=== PATIENT | female | born 1955 | race Caucasian/White ===

== ENCOUNTER → 2022-04-20 11:57 | Outpatient (CLI) | payer OTHER, SELFPAY ==
--- NOTE | ~2022-04-20 | MM_ITS ---
EXAMINATION: MM screening karine BI w isai HISTORY: Screening TECHNIQUE: Craniocaudal and mediolateral oblique 3-D tomosynthesis images were obtained and synthetic 2-D images were generated. CAD analysis was submitted and interpreted. COMPARISON: Comparison to multiple prior studies sequentially, with oldest reviewed study dated 11/22. BREAST PARENCHYMAL COMPOSITION: There are scattered areas of fibroglandular density. FINDINGS: There is no evidence of suspicious mass, calcification, or architectural distortion to sugg est malignancy in either breast. There has been no suspicious interval change. IMPRESSION: 1. No mammographic evidence of malignancy. 2. Recommend routine screening mammography in one year. BI-RADS Category 1: Negative Reviewed, dictated and finalized at location A.
--- NOTE | ~2022-04-20 | DEXA_ITS ---
Bone Density Report Name: ROSALVA SANTOS Age: 66 Sex: Female Ethnicity: White Date of : 1955 Indication: postmenopausal osteoporosis; parental hip fracture; prior fracture; Referring Provider: BRITTNEY TRIANA Study: Bone densitometry was performed. Exam Date: April 20, 2022 Accession number: [id number] Bone Density: Region BMD T-score Z-score Classification AP Spine (L1-L4) 0.712 -3.0 -1.3 Osteoporosis Femoral Neck (Left) 0.485 -3.3 -1.8 Osteoporosis Total Hip (Left) 0.723 -1.8 -0.6 Osteopenia Femoral Neck (Right) 0.523 -2.9 -1.5 Osteoporosis Total Hip (Right) 0.723 -1.8 -0.6 Osteopenia Total Hip Mean 0.723 -1.8 -0.6 Osteopenia World Health Organization criteria for BMD impression classify patients as: Normal (T-score at or above -1.0), Osteopenia (T-score between -1.0 and -2.5), or Osteoporosis (T-score at or below -2.5). 10-year Fracture Risk: FRAX not reported because: Some T-score for Spine Total or Hip Total or Femoral Neck at or below -2.5 Previous Exams: Region Exam Age BMD T-score BMD Change BMD Change Date g/cm2 vs Baseline vs Previous AP Spine(L1-L4) 04/20/2022 66 0.712 -3.0 -0.046* -0.046* 03/03/2012 56 0.759 -2.6 Total Hip(Left) 04/20/2022 66 0.723 -1.8 -0.008 -0.008 03/03/2012 56 0.731 -1.7 Total Hip(Right) 04/20/2022 66 0.723 -1.8 0.016 0.016 03/03/2012 56 0.707 -1.9 *Denotes significance at 95% confidence level, LSC for AP Spine = 0.022 g/cm2, LSC for Total Hip = 0.027 g/cm2 Clinical Information Provided by Patient: Has had a low trauma fracture Parent has had a hip fracture Has 3 or more alcoholic drinks per day Patient maximum height was 62 Menopause Age: 56 No regular weight bearing exercise Does not regularly consume dairy products Drinks caffeinated beverages Onset of menses at age 14 Number of children 2 Impression: The patient has established osteoporosis, based on the Left Femoral Neck T-score and the existence of a prior fracture. The patient has risk factors, including: parental hip fracture, excessive alcohol use, previous fracture. The BMD for the AP Spine(L1-L4) decreased, changing by -0.046 since the last DXA exam. Discussion: HIGH RISK OF FRACTURE. BONE DENSITY IS UNDESIRABLY LOW AT ONE OR MORE SKELETAL SITES, CONSISTENT WITH POSTMENOPAUSAL OSTEOPOROSIS. This patient's lowest T-score, in a patient who has previously fractured, ge[place]es
== END ==
PROVIDERS: PCP Family Medicine Adolescent Medicine; Visit Provider Physician Assistant
DX: Z12.31 Encounter for screening mammogram for malignant neoplasm of breast (principal); M81.0 Age-related osteoporosis without current pathological fracture; M85.852 Other specified disorders of bone density and structure, left thigh; M85.851 Other specified disorders of bone density and structure, right thigh
CPT/HCPCS: 77063; 77067; 77080

== ENCOUNTER 2023-08-03 01:40 | Day surgery (SDC) | payer OTHER, SELFPAY ==
[2023-07-21 14:33] VITALS: BMI 20.9
[2023-08-03 06:48] VITALS: BP 122/48; PULSE 54; RESP 18; TEMP 36.6; O2SAT 100
[2023-08-03] MEDS: LACTATED RINGERS 1,000 ML 150 ML IV CONT (06:59)
--- NOTE | 2023-08-03 07:17 | PM.HPGS ---
History of Present Illness History of Present Illness Consent: Risks, benefits, and alternatives have been discussed and questions answered. Patient agrees to proceed with procedure. Chief complaint: Personal hx. colon polyps Narrative: Joleen Acosta is a 67 year old female Presents for screening colonoscopy. Patient's current weight appetite and bowel movements are normal. Patient denies abdominal pain. She has had no bleeding. Family history noncontributory. Patient has a history of multiple colon polyps identified in 2018. She presents today for follow-up screening colonoscopy. Review of Systems Review of Systems: Review of systems noncontributory. [facility] Past Medical History Medical History (Updated 08/03/23 @ 07:18 by Brayan Lentz MD) History of adenomatous polyp of colon Surgical History Surgical History (Updated 01/22/23 @ 06:12 by Triston Grant MD) History of foot surgery (1994) Family History Family History (Updated 01/21/23 @ 15:05 by Maisha Aaron CMA) Mother Cerebrovascular accident Sibling Diabetes mellitus Liver disease Father , Accidental No problems noted. Social History Social History (Updated 05/25/23 @ 13:44 by Maisha Aaron CMA) Smoking packs per day: 1 Smoking cigarettes per day: 20.0 Years smoked: 20 Smoking pack-years: 20.00 Smoking status: Former smoker Tobacco type: cigarettes Second hand tobacco smoke exposure: No Smoking end date: 10/25/01 Alcohol intake: current Drinks per week: 6 Substance use: never Substance use type: does not use Lack of Transportation: No Lack of Food: Never True Current Housing: I Have Housing Living arrangements: with family Occupation/Education: occupation Gender identity (if verbalized by the patient): Female Sexual Orientation (if Verbalized by the Patient): Straight or Heterosexual Spiritual care concerns: No Agree to blood products: Yes Meds Home Medications and Allergies Home Medications Medication Instructions Recorded Confirmed Type acetaminophen 650 mg 650 mg PO DAILY PRN Pain 01/20/22 07/21/23 History tablet,extended release (Arthritis Pain Relief (acetaminophen) ER) metronidazole 0.75 % topical cream 1 applic topical .PRN PRN Rosacea 01/25/23 07/21/23 History Ca [id number]-pqnh-chondr-soy iso-bor 2 tablet PO DAILY 08/01/23 09/27/23 History 335 mg-80 unit-170 mg-135 mg tablet denosumab 60 mg/mL subcutaneous 60 mg subcut [id number] #1 mL 05/25/23 07/21/23 Rx syringe (Prolia) Allergies Allergy/AdvReac Type Severity Reaction Status Date / Time No Known Allergies Allergy Mild Verified 08/03/23 06:45 Vital Signs Vital Signs - 24 hr 08/03/23 06:48 Temperature 97.8 F Pulse Rate 54 L Respiratory Rate 18 Blood Pressure 122/48 L Pulse Oximetry 100 Oxygen Delivery Room Air Exam Narrative: Physical exam reveals patient to be alert. Vital signs stable. HEENT exam is unremarkable. Patient is anicteric. Lungs are clear to auscultation and percussion. Heart is without murmur or extra sounds. Abdomen bowel sounds are present soft nontender with no organomegaly. Digital external rectal exam normal. Assessment and Plan Assessment and plan (1) History of colon polyps: Code(s): Z86.010 - Personal history of colonic polyps Status: Acute Assessment and Plan: Patient has a history of colon polyps. Plan for surveillance colonoscopy now and consider this at 5 year intervals.
--- NOTE | 2023-08-03 07:57 | WPDANESEPPF ---
Anes - Initial Pre Proc Eval Procedure: Operation Date: 08/03/23 08:00 Proposed Procedures p Colonoscopy - Brayan Lentz MD Date/Time: 08/03/23 07:57 Surgeon: Brayan Lentz MD Pre Op Diagnosis: Personal hx. colon polyps Patient Data Age: 67 Gender: F Height: 1.57 m Weight: 52 kg Last Vital Signs Temp 97.8 F 08/03/23 06:48 Pulse 54 L 08/03/23 06:48 Resp 18 08/03/23 06:48 BP 122/48 L 08/03/23 06:48 Pulse Ox 100 08/03/23 06:48 O2 Del Method Room Air 08/03/23 06:48 Allergies Allergy/AdvReac Type Severity Reaction Status Date / Time No Known Allergies Allergy Mild Verified 08/03/23 06:45 Home Medications Medication Instructions Recorded Confirmed Type acetaminophen 650 mg 650 mg PO DAILY PRN Pain 01/20/22 07/21/23 History tablet,extended release (Arthritis Pain Relief (acetaminophen) ER) metronidazole 0.75 % topical cream 1 applic topical .PRN PRN Rosacea 01/25/23 07/21/23 History Ca psxp-A0-gonn-chondr-soy iso-bor 2 tablet PO DAILY 05/25/23 07/21/23 History 335 mg-80 unit-170 mg-135 mg tablet denosumab 60 mg/mL subcutaneous 60 mg subcut [id number] #1 mL 05/25/23 07/21/23 Rx syringe (Prolia) Patient hx anesthesia problems: none Family hx anesthesia problems: none Results Review: All pre-operative results and documents have been reviewed as part of the pre-operative evaluation. [facility] Past Medical History Medical History (Updated 08/03/23 @ 07:18 by Brayan Lentz MD) History of adenomatous polyp of colon Surgical History Surgical History (Updated 01/22/23 @ 06:12 by Triston Grant MD) History of foot surgery (1994) Family History Family History (Updated 01/21/23 @ 15:05 by Maisha Aaron CMA) Mother Cerebrovascular accident Sibling Diabetes mellitus Liver disease Father , Accidental No problems noted. Social History Social History (Updated 05/25/23 @ 13:44 by Maisha Aaron CMA) Smoking packs per day: 1 Smoking cigarettes per day: 20.0 Years smoked: 20 Smoking pack-years: 20.00 Smoking status: Former smoker Tobacco type: cigarettes Second hand tobacco smoke exposure: No Smoking end date: 10/25/01 Alcohol intake: current Drinks per week: 6 Substance use: never Substance use type: does not use Lack of Transportation: No Lack of Food: Never True Current Housing: I Have Housing Living arrangements: with family Occupation/Education: occupation Gender identity (if verbalized by the patient): Female Sexual Orientation (if Verbalized by the Patient): Straight or Heterosexual Spiritual care concerns: No Agree to blood products: Yes Anes - Eval Final PreProcedure Day of Procedure 08/03/23 07:57 Patient weight: normal Heart: regular rate and rhythm Lungs: clear to auscultation Airway: Mallampati scale class II Neurological: alert and oriented Last oral intake: >/= 8 hours ASA classification: II Emergent: no Anesthetic plan: proceed Anesthesia type and monitoring: general GIVS and standard monitoring Results Review: All pre-operative results and documents have been reviewed as part of the pre-operative evaluation. Informed Consent: The patient's anesthetic plan and its attendant risks and benefits were discussed with the patient/family/POA. Questions were solicited and answers provided to the satisfaction of the patient/family/POA.
[2023-08-03 08:22] VITALS: BP 107/59; PULSE 84; RESP 27; O2SAT 100
[2023-08-03 08:32] VITALS: BP 112/58; PULSE 80; RESP 23; O2SAT 100
[2023-08-03 08:42] VITALS: BP 134/74; PULSE 76; RESP 21; O2SAT 100
== END 2023-08-03 08:52 | disposition home or self-care (01) ==
PROVIDERS: PCP Family Medicine Adolescent Medicine; Visit Provider Internal Medicine Gastroenterology
PROC: 0DJD8ZZ Inspection of Lower Intestinal Tract, Via Natural or Artificial Opening Endoscopic (ICD-10-PCS; CPT 45378; principal; 2023-08-03 08:00)
DX: Z12.11 Encounter for screening for malignant neoplasm of colon (principal); K63.5 Polyp of colon; K64.8 Other hemorrhoids; K57.30 Diverticulosis of large intestine without perforation or abscess without bleeding; Z87.891 Personal history of nicotine dependence
CPT/HCPCS: 45385; 88305; J2704; J7120

== ENCOUNTER → 2023-10-19 14:52 | Outpatient (CLI) | payer OTHER, SELFPAY ==
--- NOTE | ~2023-10-19 | MM_ITS ---
EXAMINATION: MM screening karine BI w isai HISTORY: Screening mammogram TECHNIQUE: Craniocaudal and mediolateral oblique 3-D tomosynthesis images were obtained and synthetic 2-D images were generated. CAD analysis was submitted and interpreted. COMPARISON: 04/20/2022, 06/21/2018, 11/22/2015 bilateral screening mammogram examinations BREAST PARENCHYMAL COMPOSITION: The breasts are heterogeneously dense, which may obscure small masses . FINDINGS: There is no evidence of suspicious mass, calcification, or architectural distortion to sugg est malignancy in either breast. There has been no suspicious interval change. IMPRESSION: 1. No mammographic evidence of malignancy. 2. Recommend routine screening mammography in one year. BI-RADS Category 1: Negative Reviewed, dictated and finalized at location A. [employer]
== END ==
PROVIDERS: PCP Family Medicine Adolescent Medicine; Visit Provider Family Medicine Adolescent Medicine
DX: Z12.31 Encounter for screening mammogram for malignant neoplasm of breast (principal)
CPT/HCPCS: 77063; 77067

== ENCOUNTER 2024-12-21 15:54 | Outpatient (CLI) | payer OTHER, SELFPAY | END 2024-12-21 15:55 | disposition home or self-care (01) | LOC: MICIMG 15:55 | PROVIDERS: PCP Family Medicine Adolescent Medicine; Visit Provider Family Medicine Adolescent Medicine | DX: Z12.31 Encounter for screening mammogram for malignant neoplasm of breast (principal) | CPT/HCPCS: 77063; 77067 ==

== ENCOUNTER 2025-07-19 07:43 | Outpatient (CLI) | payer OTHER, SELFPAY ==
--- NOTE | ~2025-07-19 | DEXA_ITS ---
Bone Density Report Name: ROSALVA SANTOS Age: 69 Sex: Female Ethnicity: White Date of : 1955 Indication: postmenopausal osteoporosis; monitoring treatment; parental hip fracture; Referring Provider: TYREE CONNOLLY Study: Bone densitometry was performed. Exam Date: July 19, 2025 Accession number: [id number] Bone Density: Region BMD T-score Z-score Classification AP Spine(L1-L4) 0.767 -2.5 -0.6 Osteoporosis Femoral Neck (Left) 0.525 -2.9 -1.3 Osteoporosis Total Hip (Left) 0.713 -1.9 -0.5 Osteopenia Femoral Neck (Right) 0.541 -2.8 -1.1 Osteoporosis Total Hip (Right) 0.724 -1.8 -0.4 Osteopenia Total Hip Mean 0.718 -1.9 -0.5 Osteopenia World Health Organization criteria for BMD impression classify patients as: Normal (T-score at or above -1.0), Osteopenia (T-score between -1.0 and -2.5), or Osteoporosis (T-score at or below -2.5). 10-year Fracture Risk: FRAX not reported because: Some T-score for Spine Total or Hip Total or Femoral Neck at or below -2.5 Treated for osteoporosis Previous Exams: -- Region Exam Age BMD T-score BMD Change BMD Change Date g/cm2 vs Baseline vs Previous -- AP Spine (L1-L4) 07/19/2025 69 0.767 -2.5 1.0% 7.6%* 04/20/2022 66 0.712 -3.0 -6.1%* -6.1%* 03/03/2012 56 0.759 -2.6 Total Hip(Left) 07/19/2025 69 0.713 -1.9 -2.5% -1.4% 04/20/2022 66 0.723 -1.8 -1.1% -1.1% 03/03/2012 56 0.731 -1.7 Total Hip(Right) 07/19/2025 69 0.724 -1.8 2.4% 0.2% 04/20/2022 66 0.723 -1.8 2.3% 2.3% 03/03/2012 56 0.707 -1.9 -- *Denotes significance at 95% confidence level, LSC for AP Spine = 0.022 g/cm2, LSC for Total Hip = 0.027 g/cm2 Clinical Information Provided by Patient: Parent has had a hip fracture Is being treated for osteoporosis Has used the following medications: Prolia (i.e. denosumab), Vitamin D, Calcium Patient maximum height was 62 Menopause Age: 56 No regular weight bearing exercise Does not regularly consume dairy products Drinks caffeinated beverages Onset of menses at age 14 Number of children 2 Impression: The patient has osteoporosis, based on the Left Femoral Neck T-score. The patient has risk factors, including: parental hip fracture. No significant bone loss was observed. Discussion: PATIENT UNDER TREATMENT WITH NO SIGNIFICANT BMD LOSS SINCE LAST EXAM. In an untreated patient, BMD typically declines with age. A lack of decline or gain is usually a sign that treatment is efficacious and fracture risk is reduced. It is important to ask patients whether they are taking their medications and to encourage continued and appropriate compliance with their osteoporosis therapies to reduce fracture risk. It is also important to review their risk factors and encourage appropriate calcium and vitamin D intakes, exercise, fall prevention and other lifestyle measures. Follow-Up: Consider a repeat BMD and Vertebral Fracture Assessment (VFA) exam in 2 years or sooner if medically necessary, to reassess this patient's status. Reported by: JOHANNA on 07/19/2025 8:04:00 AM. Reviewed, dictated and finalized at location A.
== END 2025-07-19 07:44 | disposition home or self-care (01) ==
LOC: MICIMG 07:44
PROVIDERS: PCP Family Medicine Adolescent Medicine; Visit Provider Family Medicine Adolescent Medicine
DX: Z78.0 Asymptomatic menopausal state (principal); M81.0 Age-related osteoporosis without current pathological fracture; M85.852 Other specified disorders of bone density and structure, left thigh; M85.851 Other specified disorders of bone density and structure, right thigh
CPT/HCPCS: 77080